=== PATIENT | female | born 1965 | race Asian ===

== ENCOUNTER 2019-04-27 14:01 | Emergency (ER) | payer SELFPAY ==
[~2019-04-27] VITALS: Ht 154.9 cm; Wt 55.0 kg
[2019-04-27 15:02] VITALS: BP 121/63
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
== END 2019-04-27 16:08 | disposition home or self-care (01) ==
LOC: ER 14:01
DX: G44.209 Tension-type headache, unspecified, not intractable (principal); M25.512 Pain in left shoulder; R55 Syncope and collapse
CPT/HCPCS: 99281